=== PATIENT | female | born 1990 | race African-American/Black ===

== ENCOUNTER 2018-04-25 21:12 | Emergency (ER) | payer OTHER ==
[~2018-04-25] VITALS: Ht 157.5 cm; Wt 50.0 kg
[2018-04-25] MEDS ORDERED: LIDOCAINE HCL 1% 20ML VIAL (Pyxis) INJ INFIL ONE (22:15)
[2018-04-25] MEDS: IBUPROFEN 600MG TABLET PO ONE (22:27)
[2018-04-25] MEDS: BACITRACIN ZINC OINT UDPKT TOP ONE (23:16)
[2018-04-26 00:56] VITALS: BP 121/68
== END 2018-04-26 00:58 | disposition home or self-care (01) ==
LOC: ER 21:12
DX: S01.111A Laceration without foreign body of right eyelid and periocular area, initial encounter (principal); S00.93XA Contusion of unspecified part of head, initial encounter; R10.9 Unspecified abdominal pain; V89.2XXA Person injured in unspecified motor-vehicle accident, traffic, initial encounter; Y93.89 Activity, other specified; Y92.89 Other specified places as the place of occurrence of the external cause; Y99.8 Other external cause status
CPT/HCPCS: 12013; 81025; 99283; J3490

== ENCOUNTER 2018-04-29 18:32 | Emergency (ER) | payer OTHER ==
[~2018-04-29] VITALS: Ht 157.5 cm; Wt 51.0 kg
[2018-04-29 18:48] VITALS: BP 132/71
== END 2018-04-29 20:00 | disposition left against medical advice (07) ==
LOC: ER 18:32
DX: Z48.02 Encounter for removal of sutures (principal); Z53.21 Procedure and treatment not carried out due to patient leaving prior to being seen by health care provider

== ENCOUNTER 2019-11-14 13:48 | Emergency (ER) | payer MEDICAID, OTHER ==
[~2019-11-14] VITALS: Ht 157.5 cm; Wt 49.0 kg
[2019-11-14] MEDS ORDERED: ACETAMINOPHEN WITH CODEINE 300/30MG TABLET PO NR (14:30)
[2019-11-14] MEDS ORDERED: HYDROCODONE/ACETAMINOPHEN 5/325MG TABLET PO NR (16:00)
[2019-11-14 16:01] VITALS: BP 133/85
== END 2019-11-14 16:36 | disposition home or self-care (01) ==
LOC: ER 13:48
DX: S63.92XA Sprain of unspecified part of left wrist and hand, initial encounter (principal); V49.88XA Car occupant (driver) (passenger) injured in other specified transport accidents, initial encounter; Y93.89 Activity, other specified; Y92.89 Other specified places as the place of occurrence of the external cause; Y99.8 Other external cause status
CPT/HCPCS: 73060; 73090; 73100; 99284

== ENCOUNTER 2020-03-18 11:37 | Emergency (ER) | payer MEDICAID ==
[~2020-03-18] VITALS: Ht 160 cm; Wt 49.0 kg
[2020-03-18 11:39] VITALS: BP 119/75
== END 2020-03-18 12:25 | disposition home or self-care (01) ==
LOC: ER 11:37
DX: Z48.02 Encounter for removal of sutures (principal)
CPT/HCPCS: 99281; Z7610